=== PATIENT | female | born 1995 | race Caucasian/White ===

== ENCOUNTER 2017-07-04 08:05 | Inpatient (IN) | payer BC ==
[2017-07-04] MEDS ORDERED: BUTORPHANOL TARTRATE 1 MG/ML VIAL IVPB ONE (09:06)
[2017-07-04] MEDS ORDERED: PROMETHAZINE HCL 25 MG/1 ML VIAL IVPUSH ONE (09:06)
[2017-07-04] MEDS ORDERED: DINOPROSTONE 10 MG VAGINAL SUPPOSITORY VG ONE (09:08)
--- NOTE | 2017-07-04 09:20 | HP ---
Past Medical History - Admission History of Present Illness: 21 yo @ 40 2/7 wks by first trimester ultrasound, EDC 07/02/2017 complicated by: 1. Maternal obesity; prepregnancy BMI 35 normal GCT Total weight gain 40 lbs Most recent EFW 3467 g (62%, 7lb 10 oz) 2. Teenage Patient reports for routine induction of labor for postdates. She reports no complaints. She endorses movement, denies leakage of fluid, vaginal bleeding or contractions. History Source: Patient Limitations to Obtaining History: No Limitations - Past Medical History Cardiovascular: No: HTN Pulmonary: No: Asthma Gastrointestinal: No: GERD ...: 1 ...Para: 0 ...EDC by Dates: 07/02/17 Heme/Onc: No: Anemia - Past Surgical History Past Surgical History: Yes: None Hx Myomectomy: No Hx Transabdominal Cerclage: No - Smoking History Have you smoked in the past 12 months: No Home Medications - Allergies Allergies/Adverse Reactions: Allergies Allergy/AdvReac Type Severity Reaction Status Date / Time No Known Allergies Allergy Verified 07/04/17 09:05 Family Disease History - Family Disease History Family History: Denies Review of Systems - Review of Systems Constitutional: reports: No Symptoms Neck: reports: No Symptoms Cardiovascular: reports: No Symptoms Respiratory: reports: No Symptoms Gastrointestinal: reports: No Symptoms Genitourinary: reports: No Symptoms Neurological: reports: No Symptoms Endocrine: reports: No Symptoms Physical Exam - Maternity Constitutional: Yes: Well Nourished, No Distress, Calm Neck: Yes: Supple Cardiovascular: Yes: Regular Rate and Rhythm Lungs: Clear to auscultation - Abdominal Exam/OB Number of Fetuses: Single Presentation: Vertex Contractions: No Category: I Accelerations: Non-Uniform Decelerations: None - Vaginal Exam/OB Vaginal Bleediing: No Dilatation (cm): 1-2 Effacement (%): 80 Amniotic Membrane Status: Intact Presentation: Vertex/Position Station: -3 - Physical Exam Edema: Yes ...Motor Strength: WNL Psychiatric: Yes: Alert, Oriented - Labs Lab Results: PNL - O pos; antibody neg; RPR NR; HIV Neg; HBsAg neg; HCV neg; Merly Imm; Rubella Imm; CF/SMA/Fx neg; GCT WNL; GBS neg; Hg antony AA Hemorrhage Risk Assessment - Risk Factors Medium Risk Factors: Yes: None High Risk Factors: Yes: None Risk Score: 1 Risk Level: Medium Risk Assessment/Plan 21 yo @ 40 2/7 wks, induction of labor 1. Admit to L&D 2. Consents reviewed and signed. Risks / benefits of cervidil IOL discussed including infection, bleeding, uterine tachysystole, intolerance of labor , failure needed delivery discussed. She expressed understanding. Reviewed labor course, plan for cervidil IOL and pitocin thereafter. 3. GBS negative 4. Category I FHT 5. Routine labs collected 6. Will proceed wt expectant management
[2017-07-04 10:03] VITALS: BMI 36.3
[2017-07-04] MEDS ORDERED: TUBERCULIN PPD 5 TU/0.1ML SYRINGE (IN PATIENT USE ONLY) ID ONE (10:15)
[2017-07-04 10:26] LABS: BASO % 0.3 % (0-2.0); EOS % 1.9 % (0-4.5); HEMATOCRIT 36.2 % (32.4-45.2); LYMPH % 24.8 % (8-40); MCH 26.1 pg (25.7-33.7); MEAN CELL VOLUME 79.1 fl (80-96); MEAN PLT VOLUME 8.5 fl (7.5-11.1); MONO % 7.6 % (3.8-10.2); NEUT % 65.4 % (42.8-82.8); PLATELET COUNT 196 K/MM3 (134-434); RBC 4.58 M/mm3 (3.60-5.2); RDW 14.9 % (11.6-15.6); WHITE BLOOD COUNT 9.8 K/mm3 (4.0-10.0)
[2017-07-04] MEDS: DEXTROSE 5%-LACTATED RINGERS 1,000 ML IV SCH (10:30)
[2017-07-04 10:40] LABS: INR 0.95 (0.82-1.09); PROTHROMBIN TIME (PATIENT) 10.7 SEC (9.7-13.0)
[2017-07-04 10:43] LABS: ACTIVATED PTT 23.6 SECONDS (26.9-34.4)
[2017-07-04 11:00] LABS: ANION GAP 8 (8-16); BLOOD UREA NITROGEN 9 mg/dL (7-18); CALCIUM 8.6 mg/dL (8.5-10.1); CHLORIDE 107 mmol/L (98-107); CO2 23 mmol/L (21-32); CREATININE 0.5 mg/dL (0.55-1.02); GLUCOSE,RANDOM 65 mg/dL (74-106); POTASSIUM 4.1 mmol/L (3.5-5.1); SODIUM 138 mmol/L (136-145)
[2017-07-04] MEDS ORDERED: OXYTOCIN 30 UNITS in 0.9% NS 30 UNIT/500 ML INFUS.BAG IVPB ONE (20:37)
--- NOTE | 2017-07-04 20:45 | PN ---
Ante-Partal Exam - Subjective Subjective: Patient comfortable Unsure when cervidil fell out None in vagina on exam + FM + LOF No VB No CTX Vital Signs: Vital Signs Temperature 98.6 F 07/04/17 20:00 Pulse Rate 93 H 07/04/17 20:00 Respiratory Rate 18 07/04/17 20:00 Blood Pressure 107/64 07/04/17 20:00 O2 Sat by Pulse Oximetry (%) Bleeding: No Headache: No Visual changes: No Right upper quadrant pain: No - Contractions Contractions: No Intensity: Unaware Monitor Mode: External - Exam during Labor Heart Rate: 135 Variability: Moderate Category: I Monitor Accelerations: Present Monitor Decelerations: None Exam: Vaginal Dilatation (cm): 2 Effacement (%): 90 Amniotic Membrane Status: Ruptured Amniotic Fluid: Clear Presentation: Vertex Station: -3 - Intrapartum Hemorrhage Risk Medium Risk Factors: None High Risk Factors: None Risk Score: 0 Risk Level: Low Risk - Assessment/Plan Assessment/Plan: 21 yo IOL 1. Will start pitocin. risks benefits discussed 2. GBS negative 3. Category I FHT 4. Will offer pain medication upon request
[2017-07-04] MEDS: OXYTOCIN 30 UNITS in 0.9% NS 30 UNIT/500 ML INFUS.BAG IVPB SCH (20:50)
[2017-07-04] MEDS ORDERED: PROMETHAZINE HCL 25 MG/1 ML VIAL ONE (21:40)
[2017-07-04] MEDS ORDERED: BUTORPHANOL TARTRATE 1 MG/ML VIAL ONE ×2 (21:40)
[2017-07-05] MEDS ORDERED: FENTANYL/BUPIVACAINE/NS/PF - PCEA - 50 ML DISP.SYRIN EP ONE (01:54)
[2017-07-05] MEDS ORDERED: NALOXONE HCL 0.4 MG/ML VIAL IVPUSH PRN (02:30)
[2017-07-05] MEDS: FENTANYL/BUPIVACAINE/NS/PF - PCEA - 50 ML DISP.SYRIN EP SCH (02:30)
[2017-07-05] MEDS ORDERED: CLINDAMYCIN 900 MG PREMIX IVPB 900 MG/50 ML BAG IVPB ONE (04:00)
[2017-07-05] MEDS ORDERED: CLINDAMYCIN PHOSPHATE 600 MG/4 ML VIAL ONE (04:39)
[2017-07-05] MEDS ORDERED: OXYTOCIN 20 UNITS in 0.9% NS 20 UNIT/1,000 ML INFUS.BAG IV ONE ×2 (06:54→11:23)
[2017-07-05] MEDS ORDERED: BUPIVACAINE HCL/PF 0.25% (2.5MG/ML) 10 ML VIAL ONE (07:30)
--- NOTE | 2017-07-05 10:03 | PN ---
Delivery - Delivery Vaginal Delivery: No Problems Episiotomy/Laceration: Periurethral Extnsion/lac, Vaginal Extension/lac, 1st degree EBL (cc): 500 Delivery, Single - Stages of Labor Date 1st Stage Initiatied: 07/05/17 Time 1st Stage Initiated: 02:30 Date 2nd Stage Initiated: 07/05/17 Time 2nd Stage Initiated: 07:00 Date of Delivery: 07/05/17 Time of Delivery: 09:27 Date Placenta Delivered: 07/05/17 Time Placenta Delivered: 09:45 Placenta: Yes: Spontaneous - Condition of Gender: Female Position: OA Total Hours ROM (Hrs/Mins): 23 hours 45 minutes - 1 Minute Total Score: 9 5 Minutes Total Score: 9 Remarks - Remarks Remarks: Patient progressed to fully dilated and at 09 via delivered a viable female in direct OA position, APGARs 9,9. Weight and length unknown at this time. Head delivered spontaneously, right anterior shoulder delivered without difficulty followed by left posterior shoulder and body. Infant with spontaneous cry and placed on mother's abdomen. Nose and mouth was bulb suctioned. Cord was clamped and cut. Perineum and vagina examined, a first degree vaginal and first degree periurethral laceration was noted and repaired in the usual fashion. Placenta was delivered spontaneously and intact. 20 units of pitocin in 1 L IVF was given. All counts correct x 2. Mother and stable in LDR. EBL 500cc.
[2017-07-05] MEDS ORDERED: oxyCODONE HCL 5 MG TABLET PO PRN (10:07)
[2017-07-05] MEDS ORDERED: METHYLERGONOVINE MALEATE 0.2 MG/1 ML AMP IM PRN (10:07)
[2017-07-05] MEDS ORDERED: BISACODYL 10 MG SUPP.RECT RC PRN (10:07)
[2017-07-05] MEDS ORDERED: BENZOCAINE 28 GM HEMORRHOIDAL OINTMENT TP PRN (10:07)
[2017-07-05] MEDS ORDERED: WITCH HAZEL 50% (TUCKS) 40 PAD/JAR PAD TP PRN (10:07)
[2017-07-05] MEDS ORDERED: BENZOCAINE 20% 57 GM BOTTLE TP PRN (10:07)
[2017-07-05] MEDS ORDERED: ACETAMINOPHEN 325 MG TABLET (FP) ONE (10:55)
[2017-07-05] MEDS ORDERED: IBUPROFEN 600 MG TABLET (FP) PO ONE (10:55)
[2017-07-05] MEDS: ACETAMINOPHEN 325 MG TABLET (FP) PO PRN (11:00)
[2017-07-05] MEDS: IBUPROFEN 600 MG TABLET (FP) PO PRN (11:00)
[2017-07-05] MEDS: FERROUS SO4 325 MG TABLET (FP) PO SCH ×2 (11:53→17:34)
[2017-07-06] MEDS: ACETAMINOPHEN 325 MG TABLET (FP) PO PRN (05:44)
[2017-07-06] MEDS: IBUPROFEN 600 MG TABLET (FP) PO PRN (05:46)
[2017-07-06] MEDS ORDERED: OXYTOCIN 20 UNITS in 0.9% NS 20 UNIT/1,000 ML INFUS.BAG IV ONE (06:04)
--- NOTE | 2017-07-06 06:29 | PN ---
Post Progress Note - Subjective Subjective: Patient without acute complaints. Reports tolerating oral intake without nausea or vomiting. Ambulating without dizziness. Denies fevers or chills. Pain well controlled with oral pain medication. without difficulty. No flatus yet. Post Day: 1 Type of Delivery: Vital Signs: Vital Signs Temperature 98.7 F 07/06/17 04:00 Pulse Rate 93 H 07/06/17 04:00 Respiratory Rate 20 07/06/17 04:00 Blood Pressure 112/68 07/06/17 04:00 O2 Sat by Pulse Oximetry (%) 100 07/05/17 10:45 Breast Exam: Yes: Soft Uterus: Yes: Fundus Firm, Fundus below umbilicus Abdomen/GI: Yes: Abdomen soft, Tolerating PO. No: Abdominal Distention, Tender , Passing flatus Lochia: Yes: Serosa Lochia, amount: Moderate Extremities: Yes: Calves non-tender, Edema (+1) Activity: Ambulating - Labs Labs: CBC WBC 9.8 K/mm3 (4.0-10.0) 07/04/17 09:50 RBC 4.58 M/mm3 (3.60-5.2) 07/04/17 09:50 Hgb 12.0 GM/dL (10.7-15.3) 07/04/17 09:50 Hct 36.2 % (32.4-45.2) 07/04/17 09:50 MCV 79.1 fl (80-96) L 07/04/17 09:50 MCH 26.1 pg (25.7-33.7) 07/04/17 09:50 MCHC 33.0 g/dl (32.0-36.0) 07/04/17 09:50 RDW 14.9 % (11.6-15.6) 07/04/17 09:50 Plt Count 196 K/MM3 (134-434) 07/04/17 09:50 MPV 8.5 fl (7.5-11.1) 07/04/17 09:50 Neutrophils % 65.4 % (42.8-82.8) 07/04/17 09:50 Lymphocytes % 24.8 % (8-40) 07/04/17 09:50 Monocytes % 7.6 % (3.8-10.2) 07/04/17 09:50 Eosinophils % 1.9 % (0-4.5) 07/04/17 09:50 Basophils % 0.3 % (0-2.0) 07/04/17 09:50 Nucleated RBC % 0 % (0-0) 07/04/17 09:50 Assessment/Plan 21 yo PPD # 1 s/p , afebrile, vital signs stable, doing well 1. Continue routine care. 2. Follow up AM CBC 3. Rh positive status, no rhogam indicated. 4. Encourage ambulation 5. Continue oral pain medication 6. Anticipate discharge home day #2
[2017-07-06] MEDS: FERROUS SO4 325 MG TABLET (FP) PO SCH ×3 (07:10→17:50)
[2017-07-06 08:03] LABS: BASO % 0.3 % (0-2.0); EOS % 0.6 % (0-4.5); HEMATOCRIT 27.7 % (32.4-45.2); LYMPH % 26.3 % (8-40); MCHC 32.7 g/dl (32.0-36.0); MEAN CELL VOLUME 79.5 fl (80-96); MONO % 6.3 % (3.8-10.2); NEUT % 66.5 % (42.8-82.8); PLATELET COUNT 153 K/MM3 (134-434); RBC 3.48 M/mm3 (3.60-5.2); RDW 15.2 % (11.6-15.6); WHITE BLOOD COUNT 12.2 K/mm3 (4.0-10.0)
[2017-07-06] MEDS: PRENATAL VITAMINS W/ FOLIC ACID TABLET (FP) PO SCH (09:42)
[2017-07-06] MEDS ORDERED: SENNOSIDES/DOCUSATE COMBO (SENNA PLUS) TABLET (UD) PO PRN (22:00)
[2017-07-06] MEDS: OXYTOCIN 30 UNITS in 0.9% NS 30 UNIT/500 ML INFUS.BAG IVPB SCH ×2 (22:08→22:12)
[2017-07-06] MEDS: DEXTROSE 5%-LACTATED RINGERS 1,000 ML IV SCH (22:08)
[2017-07-06] MEDS: OXYTOCIN 20 UNITS in 0.9% NS 20 UNIT/1,000 ML INFUS.BAG IV SCH (22:08)
[2017-07-06] MEDS: FENTANYL/BUPIVACAINE/NS/PF - PCEA - 50 ML DISP.SYRIN EP SCH (22:12)
--- NOTE | 2017-07-07 08:24 | PN ---
Post Progress Note - Subjective Subjective: Patient without acute complaints. Reports tolerating oral intake without nausea or vomiting. Ambulating without dizziness. Denies fevers or chills. Pain well controlled with oral pain medication. without difficulty. Passing flatus. Post Day: 2 Type of Delivery: Vital Signs: Vital Signs Temperature 98.2 F 07/06/17 22:00 Pulse Rate 91 H 07/06/17 22:00 Respiratory Rate 18 07/06/17 22:00 Blood Pressure 137/79 07/06/17 22:00 O2 Sat by Pulse Oximetry (%) 100 07/05/17 10:45 Breast Exam: Yes: Soft. No: Cracked Nipples Uterus: Yes: Fundus Firm, Fundus below umbilicus Abdomen/GI: Yes: Abdomen soft, Passing flatus, Tolerating PO. No: Abdominal Distention, Tender Lochia: Yes: Serosa Lochia, amount: Small Extremities: Yes: Calves non-tender, Edema (trace) Activity: Ambulating - Labs Labs: CBC WBC 12.2 K/mm3 (4.0-10.0) H 07/06/17 06:25 RBC 3.48 M/mm3 (3.60-5.2) L D 07/06/17 06:25 Hgb 9.0 GM/dL (10.7-15.3) L D 07/06/17 06:25 Hct 27.7 % (32.4-45.2) L D 07/06/17 06:25 MCV 79.5 fl (80-96) L 07/06/17 06:25 MCH 26.0 pg (25.7-33.7) 07/06/17 06:25 MCHC 32.7 g/dl (32.0-36.0) 07/06/17 06:25 RDW 15.2 % (11.6-15.6) 07/06/17 06:25 Plt Count 153 K/MM3 (134-434) D 07/06/17 06:25 MPV 8.0 fl (7.5-11.1) 07/06/17 06:25 Neutrophils % 66.5 % (42.8-82.8) 07/06/17 06:25 Lymphocytes % 26.3 % (8-40) 07/06/17 06:25 Monocytes % 6.3 % (3.8-10.2) 07/06/17 06:25 Eosinophils % 0.6 % (0-4.5) 07/06/17 06:25 Basophils % 0.3 % (0-2.0) 07/06/17 06:25 Nucleated RBC % 0 % (0-0) 07/06/17 06:25 Assessment/Plan 21 yo PPD # 2 s/p , afebrile, vital signs stable, mild asymptomatic anemia, doing well 1. Patient stable for discharge home today. 2. Patient encouraged to contact MD for: - Severe pain not controlled by oral pain medication - Fevers or chills - Nausea or vomiting, intolerance of oral intake 3. Patient to follow up in office in 4-6 weeks for visit
--- NOTE | 2017-07-07 08:26 | DS ---
Physical Exam-[employer] Vital Signs: Vital Signs Temperature 98.2 F 07/06/17 22:00 Pulse Rate 91 H 07/06/17 22:00 Respiratory Rate 18 07/06/17 22:00 Blood Pressure 137/79 07/06/17 22:00 O2 Sat by Pulse Oximetry (%) 100 07/05/17 10:45 Labs: CBC, BMP 07/06/17 06:25 07/04/17 09:50 Delivery - Delivery Vaginal Delivery: No Problems Type of Anesthesia: Local, Epidural Episiotomy/Laceration: Periurethral Extnsion/lac, Vaginal Extension/lac, 1st degree EBL (cc): 500 Delivery, Single - Stages of Labor Date 1st Stage Initiatied: 07/05/17 Time 1st Stage Initiated: 02:30 Date 2nd Stage Initiated: 07/05/17 Time 2nd Stage Initiated: 07:00 Date of Delivery: 07/05/17 Time of Delivery: 09:27 Time Placenta Delivered: 09:45 Placenta: Yes: Spontaneous - Condition of Supervising Appraiser/Executive Chef Assistant Present: No Infant Gender: Female Weight: 8 lb 14 oz Position: OA Total Hours ROM (Hrs/Mins): 23 hours 45 minutes - 1 Minute Total Score: 9 5 Minutes Total Score: 9 Discharge Summary Reason For Visit: LABOR INDUCTION Current Active Problems Vaginal delivery (Acute) Procedures: Principal: Vaginal delivery Other Procedures: induction of labor Hospital Course: Patient was admitted for IOL. She received a cervidil for cervical ripening which remained for 12 hours. She received pitocin and proceeded to deliver via on hospital day #2. PPD # 1 patient ambulated, voiding, passing gas, tolerating oral intake and with adequate pain control. Noted to have mild asymptomatic anemia She fulfilled all criteria for discharge PPD #2 Condition: Good - Instructions Diet, Activity, Other Instructions: Physical activity Resume your normal everyday activity as tolerated no heavy lifting or exercise until seen by your surgeon. You may walk unlimited mikaela of and climb stairs. You may resume driving the car when you feel safe and comfortable behind the wheel. No sexual activity as instructed. Diet There are no dietary restrictions. Eat healthy, high-fiber foods. Drink 6 to 8 glasses of liquid each day. This will assist in keeping your bowels are regular. Pain management You may take Tylenol or acetaminophen or Ibuprofen (for example, Motrin, Advil etc.) from my pain prescription medication is ordered should be taken as prescribed for moderate to severe pain. Call MD for any of the following: Severe pain not relieved by medication Fever of 101 or higher Excessive bleeding or drainage on dressing Inability to urinate Referrals: Matilde Rao MD [Staff Physician] - Disposition: HOME - Home Medications Comprehensive Discharge Medication List: Ambulatory Orders Vitamins (Sjr) - 1 tab PO DAILY 07/04/17
[2017-07-07] MEDS: FERROUS SO4 325 MG TABLET (FP) PO SCH (09:18)
[2017-07-07] MEDS: PRENATAL VITAMINS W/ FOLIC ACID TABLET (FP) PO SCH (09:18)
[2017-07-07 09:38] VITALS: BP 116/70; PULSE 94; TEMP 98.5
== END 2017-07-07 11:50 | disposition home or self-care (01) | DRG 775 ==
LOC: JLDR 08:05 → J3W 07-05 11:31
PROVIDERS: ADMIT Obstetrics & Gynecology; ATTEND Obstetrics & Gynecology
PROC: 10E0XZZ Delivery of Products of Conception, External Approach (ICD-10-PCS; principal; 2017-07-04)
PROC: 0W8NXZZ Division of Female Perineum, External Approach (ICD-10-PCS; 2017-07-04)
PROC: 0HQ9XZZ Repair Perineum Skin, External Approach (ICD-10-PCS; 2017-07-04)
DX: O48.0 Post-term pregnancy (principal); O70.0 First degree perineal laceration during delivery; O99.213 Obesity complicating pregnancy, third trimester; E66.9 Obesity, unspecified; Z68.36 Body mass index [BMI] 36.0-36.9, adult; Z3A.40 40 weeks gestation of pregnancy; Z37.0 Single live birth
CPT/HCPCS: 36415; 59409; 71046-TC-FY; 80048; 85025; 85610; 85730; 86593; 86850; 86900; 86901